=== PATIENT | female | born 1940 | race Caucasian/White ===

== ENCOUNTER 2019-03-19 17:37 | Emergency (ER) | payer OTHER ==
[~2019-03-19] VITALS: Ht 154.9 cm; Wt 52.2 kg
[~2019-03-19 17:37] MED LIST: BENA10TA25 PO; FURO-572; METO50TA20 PO; RAMI10CA10
[2019-03-19 17:56] VITALS: BP 139/76
--- NOTE | 2019-03-19 18:04 | NUR ---
PT AMBULATED TO ER BED 06
--- NOTE | 2019-03-19 18:30 | NUR ---
C/O RIGHT FOOT PAIN 3 X 8 DAYS. DENIES TRAUMA. PT STATES HER BONE HAS BEEN DEFORMED FROM PREVIOUS INCIDENT. +CMS. VSS. AA0X4. BED IS DOWN, LOCKED, EBD RAIL X 1, ERMD TO SEE PT. MED HX:HTN MED : BENAZEPRIL, METOPROLOL,VIT D2
--- NOTE | 2019-03-19 18:33 | NUR ---
XRAY AT BEDSIDE
--- NOTE | 2019-03-19 19:06 | NUR ---
REPORT GIVEN TO JIN THURSTON
[2019-03-19] MEDS ORDERED: predniSONE 20 MG TAB PO ONE (20:00)
[2019-03-19] MEDS ORDERED: IBUPROFEN 400 MG TAB PO ONE (20:00)
[2019-03-19] MEDS ORDERED: KETOROLAC 30 MG/ML VIAL IM ONE (20:10)
--- NOTE | 2019-03-19 20:10 | NUR ---
PT RESTING IN BED WITH DAUGHTER AT BEDSIDE. VSS. WILL CONTINUE TO MONITOR.
--- NOTE | 2019-03-19 20:37 | NUR ---
Patient discharged with v/s stable. Written and verbal after care instructions given and explained. PT INSTRUCTED TO REST, ICE, AND ELEVATE EXTREMITIY. Patient alert, oriented and verbalized understanding of instructions. Ambulatory with steady gait. All questions addressed prior to discharge. ID band removed. Patient advised to follow up with PMD. Rx of NAPROXEN AND MEDROL WAS given. Patient educated on indication of medication including possible reaction and side effects. Opportunity to ask questions provided and answered.
[2019-03-19 20:38] VITALS: BP 139/76
== END 2019-03-19 20:38 | disposition home or self-care (01) ==
LOC: MED 17:37
DX: M79.671 Pain in right foot (principal); I10 Essential (primary) hypertension; Z79.899 Other long term (current) drug therapy
CPT/HCPCS: 73630; 96372; 99283; J1885; J7512; Q0092

== ENCOUNTER 2019-03-23 11:13 | Emergency (ER) | payer OTHER ==
[~2019-03-23] VITALS: Ht 154.9 cm; Wt 53.8 kg
[2019-03-23 11:37] VITALS: BP 178/75
[2019-03-23] MEDS ORDERED: NAPR-54 PO (11:56)
[2019-03-23] MEDS ORDERED: ERGO500028 PO (11:56)
[2019-03-23] MEDS ORDERED: METH4TAB1 PO (11:56)
[2019-03-23] MEDS ORDERED: BENA40TA PO (11:56)
--- NOTE | 2019-03-23 12:30 | NUR ---
DR CALDERON AT BEDSIDE
[2019-03-23] MEDS ORDERED: MORPHINE SULFATE 4 MG/ML SYR IVP ONE (12:40)
[2019-03-23] MEDS ORDERED: NACL 0.9% 1,000 ML IV ONE ×2 (12:40→15:10)
[2019-03-23] MEDS ORDERED: ONDANSETRON 4 MG/2 ML VIAL IVP ONE (12:40)
--- NOTE | 2019-03-23 12:45 | NUR ---
C/O UPPER ABDOMINAL PAIN WITH N/V/D X 1 DAY. PAIN 8/10. ABDOMINAL SOUNDS ACTIVE IN ALL 4 QUADRANTS, ROUND AND SOFT.WAS SEEN HERE 2 DAYS AGO FOR FOOT PAIN. VSS. AA0X4. BED IS DOWN, LOCKED, EBD RAIL X 1, ERMD TO SEE PT. HX-HNT NKA
--- NOTE | 2019-03-23 12:55 | NUR ---
LAB AT BEDSIDE
[2019-03-23 13:07] LABS: BASOPHILS % (AUTO) 0.1 % (0.0-2.0); HEMATOCRIT 34.2 % (36-48); HEMOGLOBIN 11.2 g/dL (12.0-16.0); LYMPHOCYTES # (AUTO) 1.6 K/uL (2.5-16.5); LYMPHOCYTES % (AUTO) 12.3 % (20.5-51.1); MEAN CORPUSCULAR HEMOGLOBIN 29 pg (27-31); MEAN CORPUSCULAR HGB CONC 33 g/dL (33-37); MEAN CORPUSCULAR VOLUME 88.2 fL (80-94); MONOCYTES # (AUTO) 0.7 K/uL (0.8-1.0); NEUTROPHILS # (AUTO) 11.1 K/uL (1.8-7.7); NEUTROPHILS % (AUTO) 82.6 % (42.2-75.2); PLATELET COUNT (AUTO) 393 K/uL (140-450); RED BLOOD CELL COUNT(AUTO) 3.88 MIL/uL (4.20-5.40); RED CELL DISTRIBUTION WIDTH 11.9 % (11.6-13.7); WHITE BLOOD COUNT (AUTO) 13.4 K/uL (4.8-10.8)
--- NOTE | 2019-03-23 13:13 | NUR ---
PT BEING TAKEN TO CT VIA MARY
--- NOTE | 2019-03-23 13:13 | NUR ---
ENOUGH URINE COLLECTED FOR DIP
[2019-03-23 13:30] LABS: ANION GAP 13.9 (8-16); CARBON DIOXIDE 25.6 mmol/L (21-32); CHLORIDE 104 mmol/L (98-107); CREATININE 1.5 mg/dL (0.6-1.3); GLUCOSE 140 mg/dL (74-106); POTASSIUM 4.5 mmol/L (3.5-5.1); SODIUM SERUM 139 mmol/L (136-145); UREA NITROGEN, BLOOD 26 mg/dL (7-18)
[2019-03-23 13:37] LABS: ALBUMIN 3.9 g/dL (3.4-5.0); ASPARTATE AMINOTRANSFERASE 12 U/L (15-37); LIPASE 50 U/L (73-393); TOTAL BILIRUBIN 0.4 mg/dL (0.0-1.0)
--- NOTE | 2019-03-23 13:38 | NUR ---
PT RETURNED FROM CT, PT STATES PAIN IS RELIEVED AT THIS TIME, VSS, WILL CONTINUE TO MONITOR.
[2019-03-23 14:15] LABS: APPEARANCE,URINE HAZY (CLEAR); BILIRUBIN,URINE NEGATIVE (NEGATIVE); BLOOD, URINE TRACE-I (NEGATIVE); COLOR,URINE YELLOW (YELLOW); LEUKOCYTE ESTERASE ,URINE 1+ (NEGATIVE); NITRITE, URINE NEGATIVE (NEGATIVE); PH,URINE 5.5 (5.0-9.0); UGLUCOSE NEGATIVE (NEGATIVE)
--- NOTE | 2019-03-23 14:19 | NUR ---
VSS TAKEN. PT AA0X4. GAVE ANOTHER URINE SAMPLE- HANDED DIRECTLY TO BIRD TENDER
[2019-03-23 14:32] LABS: RBC,URINE 0-5 /HPF (0-5)
--- NOTE | 2019-03-23 15:04 | NUR ---
DR CALDERON RE-EVALUATING
[2019-03-23] MEDS ORDERED: cefTRIAXone 1,000 MG VIAL ONE (15:25)
--- NOTE | 2019-03-23 15:51 | NUR ---
BLOOD CULTURES DRAWN BEDSIDE 1525 AND 1535
--- NOTE | 2019-03-23 15:51 | NUR ---
LACTIC ACID 2.4
--- NOTE | 2019-03-23 16:01 | NUR ---
LAB AT BEDSIDE
--- NOTE | 2019-03-23 17:44 | NUR ---
vss. pt aa0x4. family bedside. rr even and unlabored
[2019-03-23 18:25] VITALS: BP 137/55
--- NOTE | 2019-03-23 18:25 | NUR ---
Patient does not wish to proceed with medical care recommended by DR CALDERON. Patient given information related to possible complications, up to and including , which could occur as a result of leaving hospital at this time. Patient verbalizes understanding of risks involved leaving against medical advice. Patient has signed AMA form. CALLED [facility] TO REPORT PT LEFT AMA
== END 2019-03-23 18:25 | disposition left against medical advice (07) ==
LOC: MED 11:13
DX: N39.0 Urinary tract infection, site not specified (principal); E86.0 Dehydration; R74.0 Nonspecific elevation of levels of transaminase and lactic acid dehydrogenase [LDH]; I10 Essential (primary) hypertension; Z79.899 Other long term (current) drug therapy; Z79.1 Long term (current) use of non-steroidal anti-inflammatories (NSAID)
CPT/HCPCS: 36415; 74176; 80053; 81001; 83605; 83690; 85025; 87040; 87086; 96361; 96365; 96375; 99284; J0696; J2270; J2405; J7030